=== PATIENT | female | born 1960 | race African-American/Black ===

== ENCOUNTER 2017-12-24 12:11 | Emergency (ER) | payer OTHER ==
[~2017-12-24] VITALS: Ht 165.1 cm; Wt 82.1 kg
[2017-12-24] MEDS ORDERED: ATORVASTATIN CA40 MG PO (12:26)
[2017-12-24] MEDS ORDERED: METFORMIN HCL500 MG PO (12:26)
[2017-12-24] MEDS ORDERED: LISINOPRIL20 MG PO (12:27)
[2017-12-24] MEDS ORDERED: ZANTAC 150MG T150 MG PO (12:27)
[2017-12-24] MEDS ORDERED: HYDROXYCHLOROQ200 M1 PO (12:27)
[2017-12-24] MEDS ORDERED: ZYRTEC10 M5 PO (12:27)
[2017-12-24] MEDS ORDERED: VERAPAMIL HCL 880 M1 PO (12:27)
[2017-12-24] MEDS ORDERED: HYDROCHLOROTHIA25 M2 PO (12:27)
[2017-12-24] MEDS ORDERED: FOLIC ACID1 MG PO (12:27)
[2017-12-24] MEDS ORDERED: NORCO 5-325 TA1 EACH PO (12:47)
[2017-12-24 13:09] VITALS: BP 110/74
== END 2017-12-24 13:10 | disposition home or self-care (01) ==
LOC: ER 12:11
DX: M06.812 Other specified rheumatoid arthritis, left shoulder (principal); M06.811 Other specified rheumatoid arthritis, right shoulder; M06.862 Other specified rheumatoid arthritis, left knee; M06.861 Other specified rheumatoid arthritis, right knee; M06.831 Other specified rheumatoid arthritis, right wrist; G89.29 Other chronic pain; F17.210 Nicotine dependence, cigarettes, uncomplicated; Z88.5 Allergy status to narcotic agent; Z88.6 Allergy status to analgesic agent; Z91.040 Latex allergy status

== ENCOUNTER 2018-01-15 20:42 | Emergency (ER) | payer OTHER ==
[~2018-01-15] VITALS: Ht 167.6 cm; Wt 87.1 kg
[~2018-01-15 20:42] MED LIST: ATORVASTATIN CA40 MG PO; FOLIC ACID1 MG PO; HYDROCHLOROTHIA25 M2 PO; HYDROXYCHLOROQ200 M1 PO; LISINOPRIL20 MG PO; METFORMIN HCL500 MG PO; NORCO 5-325 TA1 EACH PO; VERAPAMIL HCL 880 M1 PO; ZANTAC 150MG T150 MG PO; ZYRTEC10 M5 PO
[2018-01-15] MEDS ORDERED: OXYCODONE PO (20:49)
[2018-01-15 21:56] LABS: HEMATOCRIT 34.2 % (37.0-47.0); HEMOGLOBIN 11.5 gm/dL (12.0-15.0); MCH 29.2 pg (26.0-34.0); MCHC 33.7 g/dL (28.0-37.0); MCV 86.8 fL (80.0-100.0); RBC 3.95 mil/uL (4.20-5.00); RDW 15.5 % (10.5-14.5); WBC 7.6 thou/uL (4.0-11.0)
[2018-01-15 22:01] LABS: URINE BILIRUBIN NEGATIVE (Negative); URINE BLOOD NEGATIVE (Negative); URINE CLARITY CLEAR; URINE COLOR YELLOW; URINE GLUCOSE-RANDOM* NEGATIVE (Negative); URINE KETONES NEGATIVE (Negative); URINE LEUKOCYTES-REFLEX NEGATIVE (Negative); URINE NITRITE-REFLEX NEGATIVE (Negative); URINE PROTEIN (DIPSTICK) NEGATIVE (Negative); URINE SPECIFIC GRAVITY >= 1.030 (1.005-1.035); URINE UROBILINOGEN 0.2 E.U./dl (0.2-1.0)
[2018-01-15 22:02] LABS: CALCIUM 9.1 mg/dL (8.5-10.1); CREATININE 1.3 mg/dL (0.6-1.0); MAGNESIUM 1.7 mg/dL (1.8-2.4); POTASSIUM 4.9 mmol/L (3.5-5.1)
[2018-01-15] MEDS ORDERED: NORCO 5-325 TA1 EACH PO (22:36)
[2018-01-15 22:53] VITALS: BP 130/86
== END 2018-01-15 22:54 | disposition home or self-care (01) ==
LOC: ER 20:42
PROVIDERS: Emergency Medicine
DX: M06.9 Rheumatoid arthritis, unspecified (principal); G89.29 Other chronic pain; I10 Essential (primary) hypertension; J45.909 Unspecified asthma, uncomplicated; F17.210 Nicotine dependence, cigarettes, uncomplicated; Z96.641 Presence of right artificial hip joint; Z88.5 Allergy status to narcotic agent; Z88.6 Allergy status to analgesic agent; Z91.040 Latex allergy status

== ENCOUNTER 2018-02-15 22:47 | Emergency (ER) | payer OTHER ==
[~2018-02-15] VITALS: Ht 167.6 cm; Wt 94.8 kg
[~2018-02-15 22:47] MED LIST changes: +OXYCODONE PO
[2018-02-16 00:50] LABS: CALCIUM 9.3 mg/dL (8.5-10.1); CREATININE 1.2 mg/dL (0.6-1.0); POTASSIUM 4.3 mmol/L (3.5-5.1)
[2018-02-16 00:51] LABS: HEMATOCRIT 31.7 % (37.0-47.0); HEMOGLOBIN 10.3 gm/dL (12.0-15.0); MCHC 32.5 g/dL (28.0-37.0); MCV 86.2 fL (80.0-100.0); RBC 3.67 mil/uL (4.20-5.00); RDW 14.8 % (10.5-14.5); WBC 8.5 thou/uL (4.0-11.0)
[2018-02-16 00:56] LABS: ALBUMIN 3.1 g/dL (3.4-5.0); TOTAL BILIRUBIN 0.1 mg/dL (<0.1-1.0); TOTAL PROTEIN 7.2 g/dL (6.4-8.2)
[2018-02-16] MEDS ORDERED: PERCOCET PO (02:51)
[2018-02-16 03:05] VITALS: BP 146/94
== END 2018-02-16 03:06 | disposition home or self-care (01) ==
LOC: ER 22:47
PROVIDERS: Emergency Medicine
DX: M54.5 Low back pain (principal); G89.29 Other chronic pain; M79.661 Pain in right lower leg; R60.0 Localized edema; F17.210 Nicotine dependence, cigarettes, uncomplicated; M06.9 Rheumatoid arthritis, unspecified; M19.90 Unspecified osteoarthritis, unspecified site; I10 Essential (primary) hypertension; J45.909 Unspecified asthma, uncomplicated; Z88.5 Allergy status to narcotic agent; Z88.8 Allergy status to other drugs, medicaments and biological substances; Z91.040 Latex allergy status; Z88.6 Allergy status to analgesic agent; Z96.641 Presence of right artificial hip joint; Z90.89 Acquired absence of other organs; Z90.710 Acquired absence of both cervix and uterus

== ENCOUNTER 2018-03-24 17:46 | Emergency (ER) | payer OTHER ==
[~2018-03-24] VITALS: Ht 165.1 cm; Wt 95.3 kg
[~2018-03-24 17:46] MED LIST changes: +PERCOCET PO
[2018-03-24 18:40] LABS: ABSOLUTE NEUTROPHILS 7.1 thou/uL (1.4-8.2); BASOPHILS 0.6 % (0.0-2.0); EOSINOPHILS 1.7 % (0.0-3.0); HEMATOCRIT 32.5 % (37.0-47.0); HEMOGLOBIN 10.5 gm/dL (12.0-15.0); LYMPHOCYTES 19.5 % (24.0-44.0); MCH 27.5 pg (26.0-34.0); MCHC 32.4 g/dL (28.0-37.0); MCV 84.9 fL (80.0-100.0); MONOCYTES 7.6 % (1.0-8.0); PLATELET COUNT 272 thou/uL (150-400); POLYS 70.6 % (36.0-66.0); RBC 3.83 mil/uL (4.20-5.00); RDW 14.3 % (10.5-14.5)
[2018-03-24 18:46] LABS: CALCIUM 9.7 mg/dL (8.5-10.1); CREATININE 1.4 mg/dL (0.6-1.0); POTASSIUM 4.2 mmol/L (3.5-5.1)
[2018-03-24 18:51] LABS: ALBUMIN 3.3 g/dL (3.4-5.0); TOTAL BILIRUBIN 0.2 mg/dL (<0.1-1.0); TOTAL PROTEIN 7.9 g/dL (6.4-8.2)
[2018-03-24] MEDS ORDERED: NORCO 10-325 T1 EACH PO (20:50)
[2018-03-24 20:55] VITALS: BP 146/96
== END 2018-03-24 20:55 | disposition home or self-care (01) ==
LOC: ER 17:46
PROVIDERS: Physician Assistant
DX: M71.21 Synovial cyst of popliteal space [Baker], right knee (principal); M06.9 Rheumatoid arthritis, unspecified; I10 Essential (primary) hypertension; M19.90 Unspecified osteoarthritis, unspecified site; Z96.641 Presence of right artificial hip joint; Z90.710 Acquired absence of both cervix and uterus; F17.210 Nicotine dependence, cigarettes, uncomplicated; Z88.5 Allergy status to narcotic agent; Z88.6 Allergy status to analgesic agent; Z91.040 Latex allergy status